=== PATIENT | male | born 1950 | race Caucasian/White ===

== ENCOUNTER 2018-01-30 10:06 | Day surgery (SDC) | payer MEDICARE, OTHER ==
[~2018-01-30 10:06] MED LIST: Lactated Ringers 1,000 ML IV SCH; Sodium Chloride 0.9% 5 ML Syringe FLUSH PRN
[2018-01-30] MEDS ORDERED: Propofol 200 MG/20 ML SDV IV ONE ×2 (10:07)
[2018-01-30] MEDS ORDERED: fentaNYL 100 MCG/2 ML SDV IV ONE ×2 (10:07)
[2018-01-30] MEDS ORDERED: Midazolam 1 MG/ML 2 ML SDV IV ONE ×2 (10:07)
[2018-01-30] MEDS ORDERED: EPINEPHrine 1:10,000 1 MG/10 ML Syringe ONE (11:01)
[2018-01-30] MEDS ORDERED: Propofol 200 MG/20 ML SDV ONE ×3 (11:11→11:50)
[2018-01-30] MEDS ORDERED: Midazolam 1 MG/ML 2 ML SDV ONE (11:11)
[2018-01-30] MEDS ORDERED: fentaNYL 100 MCG/2 ML SDV ONE (11:11)
--- NOTE | 2018-01-30 11:58 | PCM.OPNOTE ---
- General Post-Op/Procedure Note Date of Surgery/Procedure: 01/30/18 Operative Procedure(s): Colonoscopy with polypectomies x 2 and biopsies of a flat sessile polyp at the ileocecal junction. Anesthesia Technique: MAC Primary Surgeon: Jigar Cerda Complications: None Condition: Good Free Text/Narrative:: INFORMED CONSENT: Patient is here today for elective colonoscopy. All aspects of this procedure have been discussed with the patient. All possible complications also, including possibility of perforation, infection, pain, bleeding and unknown complications. In the event of perforation patient may need to have abdominal exploration, colon resection, colostomy and even was discussed. Anesthetic complications were handled by anesthesia department. The patient understands fully well. Patient did not have any further questions for me at the end of my interview. The patient wishes for me to proceed. PREOPERATIVE DIAGNOSIS/INDICATIONS: [Rectal bleeding and constipation] POSTOPERATIVE DIAGNOSIS: [Moderate large polyp noted in the vesicle junction and 2 small polyps identified in the transverse colon.] INSTRUMENT USED: Olympus videocolonoscope. ASA CLASSIFICATION: [2] ANESTHESIA: Continuous EKG, oximetry and intermittent blood pressure and respiratory monitoring were performed throughout the procedure. IV Versed and Fentanyl were administered. PROCEDURE PERFORMED: Colonoscopy POSITIONS OF PATIENT: Left lateral. RECTUM: Normal. SIGMOID COLON: Normal. DESCENDING COLON: Normal. SPLENIC FLEXURE: Normal. TRANSVERSE COLON: 2 small polyps were identified and removed using the cold biopsy forceps.. HEPATIC FLEXURE: Normal. ASCENDING COLON: Normal. CECUM: A moderate sized sessile polyp was identified and multiple biopsies were taken.. ILEOCECAL VALVE: Normal. BIOPSY: None. TOLERANCE: Excellent. COMPLICATIONS: None. Final diagnosis: 2 small polyps of the transverse colon and one moderate large polyp at the ileocecal junction. Biopsy reports are pending.
== END 2018-01-30 13:35 | disposition home or self-care (01) ==
LOC: KA.SDS 10:06
PROVIDERS: ATTEND Family Medicine
DX: D12.3 Benign neoplasm of transverse colon (principal); I10 Essential (primary) hypertension; E66.3 Overweight; Z68.25 Body mass index [BMI] 25.0-25.9, adult; Z79.899 Other long term (current) drug therapy
CPT/HCPCS: 00812; 45380; 88305; J2250; J2704; J3010; J7120

== ENCOUNTER 2018-03-13 06:59 | Day surgery (SDC) | payer MEDICARE, OTHER ==
[~2018-03-13 06:59] MED LIST changes: +Bupivacaine 0.5%/EPINEPHrine 1:200,000 30 ML SDV ONE; -Lactated Ringers 1,000 ML IV SCH; -Sodium Chloride 0.9% 5 ML Syringe FLUSH PRN; +ceFAZolin 1 GM Vial ONE
[2018-03-13] MEDS ORDERED: Lactated Ringers 1,000 ML IV SCH (07:00)
[2018-03-13] MEDS ORDERED: Sodium Chloride 0.9% 5 ML Syringe FLUSH PRN (07:00)
[2018-03-13] MEDS ORDERED: Propofol 200 MG/20 ML SDV ONE (07:01)
[2018-03-13] MEDS ORDERED: fentaNYL 250 MCG/5 ML SDV ONE (07:01)
[2018-03-13] MEDS ORDERED: Midazolam 1 MG/ML 2 ML SDV ONE (07:01)
[2018-03-13] MEDS ORDERED: ceFAZolin 1 GM Vial ONE ×2 (07:01→08:41)
[2018-03-13] MEDS ORDERED: Water For Injection, Sterile 20 ML ONE (07:03)
[2018-03-13] MEDS ORDERED: Lactated Ringers 1,000 ML ONE (08:06)
[2018-03-13] MEDS ORDERED: Succinylcholine 200 MG/10 ML MDV IV ONE (08:11)
[2018-03-13] MEDS ORDERED: Ondansetron 4 MG/2 ML SDV IV ONE (08:11)
[2018-03-13] MEDS ORDERED: fentaNYL 250 MCG/5 ML SDV IV ONE (08:11)
[2018-03-13] MEDS ORDERED: Neostigmine Methylsulfate 10 MG/10 ML MDV IV ONE (08:11)
[2018-03-13] MEDS ORDERED: ceFAZolin 1 GM Vial IV ONE (08:11)
[2018-03-13] MEDS ORDERED: Midazolam 1 MG/ML 2 ML SDV IV ONE (08:11)
[2018-03-13] MEDS ORDERED: Glycopyrrolate 0.2 MG/ML 5 ML MDV IV ONE (08:11)
[2018-03-13] MEDS ORDERED: Rocuronium 50 MG/5 ML Vial IV ONE (08:11)
[2018-03-13] MEDS ORDERED: Propofol 200 MG/20 ML SDV IV ONE (08:11)
[2018-03-13] MEDS ORDERED: Bupivacaine 0.5%/EPINEPHrine 1:200,000 30 ML SDV INFILT ONE ×2 (08:40)
[2018-03-13] MEDS ORDERED: Sodium Chloride 0.9% 20 ML SDV ONE (08:41)
[2018-03-13] MEDS ORDERED: fentaNYL 100 MCG/2 ML SDV IVPUSH PRN (08:55)
[2018-03-13] MEDS ORDERED: Morphine 4 MG/ML Syringe IVPUSH PRN (08:55)
[2018-03-13] MEDS ORDERED: Ondansetron 4 MG/2 ML SDV IVPUSH PRN (08:55)
[2018-03-13] MEDS ORDERED: Morphine 2 MG/ML Syringe IVPUSH PRN (08:55)
--- NOTE | 2018-03-13 10:46 | PCM.OPNOTE ---
- General Post-Op/Procedure Note Date of Surgery/Procedure: 03/13/18 Operative Procedure(s): Left inguinal herniorrhaphy and repair with Marlex mesh Findings: Moderately enlarged left inguinal hernia with both components the indirect and direct components were visualized and corrected. Pre Op Diagnosis: Left inguinal hernia indirect and direct Post-Op Diagnosis: As above Anesthesia Technique: General LMA Primary Surgeon: Jigar Cerda Complications: None Condition: Good Free Text/Narrative:: INFORMED CONSENT: The patient is here today for elective left inguinal herniorrhaphy. The operative procedure, anesthesia and risks of both are completely explained to the patient. These include infection, pain, bleeding, recurrence, numbness and other unknown complications. The patient wished to proceed. The patient was kept in the supine position and the left inguinal area was thoroughly prepped and draped in the usual fashion. An incision was made over the left inguinal area, parallel to the inguinal ligament. The skin incision was deepened through the subcutaneous tissue, deep fascia and the external oblique was opened along the line of the skin incision. The cord structures were identified and kept out of harms way. We also identified the ilioinguinal nerve and the inguinal branch of the genitofemoral nerve. These two structures were kept out of harms way as well. We then dissected the medial portion of the cord and there was a fairly significant hernial sac which was opened. The contents were mostly omental tissue that was pushed back into the abdominal cavity. A high ligation of the sac was performed with 0 silk sutures. The excess sac was excised and sent away for histology. The lipoma of the cord was also removed. Palpation of the medial portion of the floor indicated a defect. A Marlex mesh was then cut down to size and placed to fortify the defect of the floor and the direct portion of the hernia. The mesh was attached to the conjoined tendon superiorly, Lupillo's ligament medially and the reflected portion of the inguinal ligament inferiorly. The wound was irrigated, small bleeders were cauterized and the external oblique was closed over the cord structures using running 0 silk sutures. The subcutaneous tissue was closed with 0 Polysorb suture and the skin was closed using 4.0 Polysorb suture. A Sterile pressure dressing was applied, the patient tolerated the procedure well and there were no operative complications. Blood loss was negligible. Sponge, needle and instrument count was correct. The patient was transferred to the recovery room in excellent condition.
[2018-03-13] MEDS ORDERED: Ibuprofen 600 MG Tab PO ONE (13:04)
== END 2018-03-13 16:20 | disposition home or self-care (01) ==
LOC: KA.SDS 06:59
PROVIDERS: ATTEND Family Medicine
DX: K40.90 Unilateral inguinal hernia, without obstruction or gangrene, not specified as recurrent (principal); I10 Essential (primary) hypertension; J44.9 Chronic obstructive pulmonary disease, unspecified; K59.04 Chronic idiopathic constipation; E66.3 Overweight; Z68.25 Body mass index [BMI] 25.0-25.9, adult
CPT/HCPCS: 51702; A9270-GY; C1781; J0330; J0690; J2250; J2405; J2704; J2710; J3010; J3490; J7120

== ENCOUNTER 2022-11-08 16:35 | Inpatient (IN) | payer MEDICARE, OTHER ==
[2022-11-08 17:16] LABS: ANION GAP 13.3 mmol/L (5-15)
[2022-11-08] MEDS ORDERED: cefTRIAXone 1 GM Vial IVPUSH ONE (17:41)
[2022-11-08] MEDS: Sodium Chloride 0.9% 100 ML IV SCH (18:29)
[2022-11-08] MEDS: Levofloxacin/Dextrose 5%-Water 500 MG in Premix Bag 1 BAG IV SCH (18:30)
[2022-11-08] MEDS ORDERED: Albuterol 8 GM Inhaler INH PRN (18:33)
[2022-11-08] MEDS ORDERED: Sodium Chloride 0.9% 1,000 ML IV SCH (19:00)
[2022-11-08] MEDS: Albuterol/Ipratropium 3.0-0.5 MG/3 ML Neb Soln NEB SCH ×2 (20:08→23:44)
[2022-11-09] MEDS: Albuterol/Ipratropium 3.0-0.5 MG/3 ML Neb Soln NEB SCH ×4 (05:24→23:12)
[2022-11-09] MEDS: Tamsulosin 0.4 MG Cap.ER PO SCH (08:29)
[2022-11-09] MEDS: Multivitamins with Minerals/Iron/Folic Acid/Lycopene Tab PO SCH (08:29)
[2022-11-09] MEDS: Losartan 50 MG Tab PO SCH (08:37)
[2022-11-09] MEDS: Levofloxacin/Dextrose 5%-Water 500 MG in Premix Bag 1 BAG IV SCH (17:25)
[2022-11-10] MEDS: Albuterol/Ipratropium 3.0-0.5 MG/3 ML Neb Soln NEB SCH ×4 (05:20→21:02)
[2022-11-10] MEDS: Formoterol/Mometasone 200-5 MCG 8.8 GM Inhaler IH SCH ×2 (08:35→19:17)
[2022-11-10] MEDS: Multivitamins with Minerals/Iron/Folic Acid/Lycopene Tab PO SCH (08:36)
[2022-11-10] MEDS: Tamsulosin 0.4 MG Cap.ER PO SCH (08:36)
[2022-11-10] MEDS: Losartan 50 MG Tab PO SCH (08:37)
[2022-11-10] MEDS ORDERED: methylPREDNISolone Sodium Succinate 125 MG/2 ML SDV IVPUSH ONE ×2 (10:07→21:00)
[2022-11-10] MEDS: Levofloxacin/Dextrose 5%-Water 500 MG in Premix Bag 1 BAG IV SCH (16:58)
[2022-11-10] MEDS: Sodium Chloride 0.9% 10 ML Syringe FLUSH PRN (17:06)
[2022-11-11] MEDS: Albuterol/Ipratropium 3.0-0.5 MG/3 ML Neb Soln NEB SCH ×6 (01:33→21:04)
[2022-11-11] MEDS: Formoterol/Mometasone 200-5 MCG 8.8 GM Inhaler IH SCH ×2 (08:32→19:48)
[2022-11-11] MEDS: Tamsulosin 0.4 MG Cap.ER PO SCH (08:32)
[2022-11-11] MEDS: Multivitamins with Minerals/Iron/Folic Acid/Lycopene Tab PO SCH (08:32)
[2022-11-11] MEDS: Losartan 50 MG Tab PO SCH (08:33)
[2022-11-11] MEDS ORDERED: methylPREDNISolone Sodium Succinate 125 MG/2 ML SDV IVPUSH ONE ×2 (10:17→21:00)
[2022-11-11] MEDS: Sodium Chloride 0.9% 10 ML Syringe FLUSH PRN (10:50)
[2022-11-11] MEDS: Sodium Chloride 0.9% 100 ML IV SCH (16:41)
[2022-11-11] MEDS: Levofloxacin/Dextrose 5%-Water 500 MG in Premix Bag 1 BAG IV SCH (16:44)
[2022-11-12] MEDS: Albuterol/Ipratropium 3.0-0.5 MG/3 ML Neb Soln NEB SCH ×3 (01:43→08:13)
[2022-11-12 07:39] LABS: ANION GAP 14.6 mmol/L (5-15)
[2022-11-12] MEDS: Sodium Chloride 0.9% 10 ML Syringe FLUSH PRN (08:12)
[2022-11-12] MEDS: Formoterol/Mometasone 200-5 MCG 8.8 GM Inhaler IH SCH (08:13)
[2022-11-12] MEDS: Multivitamins with Minerals/Iron/Folic Acid/Lycopene Tab PO SCH (08:13)
[2022-11-12] MEDS: Tamsulosin 0.4 MG Cap.ER PO SCH (08:13)
[2022-11-12] MEDS: Losartan 50 MG Tab PO SCH (08:13)
[2022-11-12] MEDS ORDERED: predniSONE 20 MG Tab PO ONE (10:26)
[2022-11-12] MEDS ORDERED: Albuterol/Ipratropium 3.0-0.5 MG/3 ML Neb Soln NEB ONE (10:28)
[2022-11-12] MEDS ORDERED: Levofloxacin 500 MG Tab PO ONE (10:30)
[2022-11-12] MEDS ORDERED: predniSONE 20 MG Tab ONE (10:40)
[2022-11-13] MEDS ORDERED: predniSONE 20 MG Tab PO ONE (10:26)
== END 2022-11-12 11:25 | disposition home or self-care (01) | DRG 193 ==
LOC: KA.ED 16:35 → KA.MS 17:42
PROVIDERS: ADMIT Family Medicine; ATTEND Family Medicine
DX: J12.1 Respiratory syncytial virus pneumonia (principal); R09.02 Hypoxemia; J18.9 Pneumonia, unspecified organism; J15.9 Unspecified bacterial pneumonia; J96.01 Acute respiratory failure with hypoxia; J44.0 Chronic obstructive pulmonary disease with (acute) lower respiratory infection; J44.1 Chronic obstructive pulmonary disease with (acute) exacerbation; B97.4 Respiratory syncytial virus as the cause of diseases classified elsewhere; N40.0 Benign prostatic hyperplasia without lower urinary tract symptoms; I10 Essential (primary) hypertension; K59.04 Chronic idiopathic constipation; Z87.891 Personal history of nicotine dependence; Z79.899 Other long term (current) drug therapy; I25.2 Old myocardial infarction
CPT/HCPCS: 36415; 71045; 80048; 80053; 83605; 84484; 85025; 87040; 93005; 93010; 94640; 99284; 99285; A9270-GY; J0696; J1956; J2930; J3490; J7030; J7512; J7620-GY